=== PATIENT | female | born 1950 | race Hispanic/Latino ===

== ENCOUNTER → 2022-09-06 | Outpatient (CLI) | payer MEDICARE | END | disposition home or self-care (01) | LOC: RAH 14:42 | PROVIDERS: ATTEND Student in an Organized Health Care Education/Training Program | DX: S82.091A Other fracture of right patella, initial encounter for closed fracture (principal); M25.461 Effusion, right knee; X58.XXXA Exposure to other specified factors, initial encounter; Y93.89 Activity, other specified; Y92.89 Other specified places as the place of occurrence of the external cause; Y99.8 Other external cause status | CPT/HCPCS: 73721 ==

== ENCOUNTER 2022-09-20 05:40 | Day surgery (SDC) | payer MEDICARE ==
[2022-09-18 13:59] LABS: EOSINOPHILS % (AUTO) 3.2 % (0.0-8.0); HEMATOCRIT 47.3 % (36-48); MEAN CORPUSCULAR HEMOGLOBIN 29.1 pg (27.0-33.0); MEAN CORPUSCULAR HGB CONC 31.7 g/dL (32.0-36.0); MEAN CORPUSCULAR VOLUME 91.8 fL (79-99); MONOCYTES % (AUTO) 4.9 % (3.0-13.0); NEUTROPHILS % (AUTO) 52.8 % (40.0-77.0); PLATELET COUNT (AUTO) 206 K/uL (130-400); RED BLOOD CELL COUNT(AUTO) 5.15 MIL/uL (4.00-5.50); RED CELL DISTRIBUTION WIDTH 13.8 % (11.0-15.5); WHITE BLOOD COUNT (AUTO) 7.9 K/uL (4.8-10.8)
[2022-09-18 14:05] LABS: ALBUMIN 4.3 g/dL (3.5-5.0); CARBON DIOXIDE 31 mmol/L (21-32); CHLORIDE 100 mmol/L (101-111); CREATININE 0.8 mg/dL (0.5-1.5); GLOMERULAR FILTR. RATE CALC 79 mL/min (>90); GLUCOSE,RANDOM 122 mg/dL (70-105); POTASSIUM 4.1 mmol/L (3.5-5.1); SODIUM SERUM 140 mmol/L (136-145); UREA NITROGEN, BLOOD 15 mg/dL (7-18)
[2022-09-18 14:06] LABS: CRP QUANTITATIVE < 2.00 mg/L (0.00-9.0)
[2022-09-18 14:13] VITALS: BP 140/88
[2022-09-20] VITALS (18 sets, daily range): BP systolic 132–195; BP diastolic 52–90
[~2022-09-20] VITALS: Ht 160 cm; Wt 64.7 kg
[~2022-09-20 05:40] MED LIST: ACET-2079 PO; ATOR10 PO; HYDR12.54 PO; LEVO100C4 PO; LOSA50TA64 PO; METF-446 PO; VITAMIN D PO
[2022-09-20] MEDS ORDERED: 0.9%NACL 1000ML 1,000 ML IV ONE (06:18)
[2022-09-20] MEDS: CEFAZOLIN SODIUM 2 GM VIAL ONE ×2 (06:26→07:56)
[2022-09-20] MEDS ORDERED: PROPOFOL 10 MG/ML 20ML VIAL IV ONE (06:52)
[2022-09-20] MEDS ORDERED: ROCURONIUM 10MG/1ML SYR 10 MG/ML ML ONE ×2 (06:53→07:21)
[2022-09-20] MEDS ORDERED: MIDAZOLAM HCL 1 MG/ML 2ML VIAL ONE (06:53)
[2022-09-20] MEDS ORDERED: FENTANYL CITRATE PF 50 MCG/1 ML 2ML VIAL ONE ×2 (06:53→07:05)
[2022-09-20] MEDS ORDERED: ROPIVACAINE 0.5% 5MG/ML 30ML IJ ONE ×2 (07:05→07:11)
[2022-09-20] MEDS ORDERED: ONDANSETRON 4MG INJ ONE (07:14)
[2022-09-20] MEDS ORDERED: EPHEDRINE SULFATE 50 MG/ML AMPULE ONE (07:51)
[2022-09-20] MEDS ORDERED: KETOROLAC 30MG VIAL (30MG/ML) ONE (08:48)
[2022-09-20] MEDS ORDERED: NEOSTIGMINE 5MG/5ML SYR IV ONE (08:55)
[2022-09-20] MEDS ORDERED: GLYCOPYRROLATE 1 MG/5 ML SYRINGE ONE (08:55)
[2022-09-20] MEDS ORDERED: HYDRALAZINE 20MG/ML VIAL ONE (09:39)
== END 2022-09-20 11:15 | disposition home or self-care (01) ==
LOC: DAH 05:40
PROVIDERS: ATTEND Student in an Organized Health Care Education/Training Program
DX: S82.041A Displaced comminuted fracture of right patella, initial encounter for closed fracture (principal); Z20.822 Contact with and (suspected) exposure to COVID-19; S82.031A Displaced transverse fracture of right patella, initial encounter for closed fracture; I10 Essential (primary) hypertension; E11.9 Type 2 diabetes mellitus without complications; E03.9 Hypothyroidism, unspecified; E78.5 Hyperlipidemia, unspecified; Z79.890 Hormone replacement therapy; Z79.84 Long term (current) use of oral hypoglycemic drugs; Z79.899 Other long term (current) drug therapy; Z98.890 Other specified postprocedural states; Z82.49 Family history of ischemic heart disease and other diseases of the circulatory system; Z83.3 Family history of diabetes mellitus; W19.XXXA Unspecified fall, initial encounter; Y93.89 Activity, other specified; Y92.89 Other specified places as the place of occurrence of the external cause; Y99.8 Other external cause status
CPT/HCPCS: 82040; 80048; 85025; 84134; 86140; 87426; 36415; 27524; 64447; 82948 ×2; 73560; A4663; J7120; A4649 ×2; J3010 ×2; J3490 ×2; J2710; J7030; J2250; J2704; J2405; J1885; J2795 ×2; J0690; G0168; A6255; A5120; A4215; A4223; A4222; A4221; 76942; J0360